=== PATIENT | male | born 2000 | race Caucasian/White ===

== ENCOUNTER 2022-04-07 09:55 | Day surgery (SDC) | payer OTHER ==
[~2022-04-07] VITALS: Ht 182.9 cm; Wt 83.2 kg
[2022-04-07] MEDS ORDERED: OXYMETAZOLINE 0.05% NASAL SPRAY (AFRIN) As Ordered ONE (11:13)
[2022-04-07] MEDS ORDERED: BUPIVACAINE/EPIN 0.5% 30 ML VIAL As Ordered ONE (11:13)
[2022-04-07] MEDS ORDERED: ACETAMINOPHEN 1000MG 100ML IV BTL (OFIRMEV) (J0131 PER 10MG) As Ordered ONE (11:23)
[2022-04-07] MEDS ORDERED: dexameTHASONE 4 MG/ML 1ML VIAL (J1100 PER 1MG) As Ordered ONE (11:23)
[2022-04-07] MEDS ORDERED: ONDANSETRON 4MG 2ML VIAL As Ordered ONE (11:23)
[2022-04-07] MEDS ORDERED: fentaNYL 100 MCG/2 ML INJECTION As Ordered ONE ×2 (11:23→11:36)
[2022-04-07] MEDS ORDERED: propofoL 200 MG/20 ML VIAL As Ordered ONE ×2 (11:23→11:37)
[2022-04-07] MEDS ORDERED: METOCLOPRAMIDE INJ 10MG/2ML VIAL (J2765 PER 1) As Ordered ONE (11:23)
[2022-04-07] MEDS ORDERED: MIDAZOLAM INJ 2MG/2ML VIAL (J2250 PER 1MG) As Ordered ONE (11:23)
[2022-04-07] MEDS ORDERED: LIDOCAINE 2% 100MG/5ML SDV (FOR ANES.) As Ordered ONE (11:23)
[2022-04-07] MEDS ORDERED: ROCURONIUM BROMIDE 50 MG/5 ML VIAL As Ordered ONE ×2 (11:29→11:34)
[2022-04-07] MEDS ORDERED: SUGAMMADEX SODIUM 500 MG/5 ML VIAL (BRIDION) As Ordered ONE (11:34)
[2022-04-07] MEDS ORDERED: SEVOFLURANE INHAL SOLN 250 ML BTL As Ordered ONE (11:53)
[2022-04-07] MEDS ORDERED: ONDANSETRON 4MG 2ML VIAL IV PRN ×2 (12:10→12:30)
[2022-04-07] MEDS ORDERED: fentaNYL 100 MCG/2 ML INJECTION IV PRN (12:10)
[2022-04-07] MEDS ORDERED: LR 1,000 ML IV SCH ×2 (12:10→12:30)
[2022-04-07] MEDS ORDERED: MORPHINE 2 MG/ML 1ML VIAL IV PRN (12:10)
[2022-04-07] MEDS ORDERED: oxyCODONE 5MG TAB PO PRN (12:10)
[2022-04-07] MEDS ORDERED: HYDROcodone/APAP LIQUID 7.5-325MG 15ML UDC (LORTAB ELIXIR) PO PRN (12:30)
[2022-04-07 14:11] VITALS: BP 149/77
== END 2022-04-07 14:19 | disposition home or self-care (01) ==
LOC: M SDC 09:55
PROVIDERS: ATTEND Otolaryngology
DX: J35.03 Chronic tonsillitis and adenoiditis (principal)
CPT/HCPCS: 42821; 88302; J0131; J1100; J2250; J2405; J2765; J3010

== ENCOUNTER 2022-04-19 22:11 | Emergency (ER) | payer OTHER ==
[~2022-04-19] VITALS: Ht 182.9 cm; Wt 79.5 kg
[2022-04-19] MEDS ORDERED: IBUPROFEN 600MG TAB PO ONE (22:30)
[2022-04-20 02:28] LABS: ALBUMIN 4.2 GM/DL (3.2-5.2); ALT/SGPT 33 U/L (12-78); BILIRUBIN,DIRECT 0.2 MG/DL (0.0-0.2); BILIRUBIN,TOTAL 0.6 MG/DL (0.2-1.0); BLOOD UREA NITROGEN 11 MG/DL (7-18); C REACTIVE PROTEIN QUANTITATIV 4.93 MG/DL (0.00-0.30); CARBON DIOXIDE LEVEL 27 MEQ/L (21-32); CHLORIDE LEVEL 100 MEQ/L (98-107); CREATININE FOR GFR 1.29 MG/DL (0.70-1.30); GLOMERULAR FILTRATION RATE > 60.0 (>60); GLUCOSE, FASTING 105 MG/DL (70-100); POTASSIUM SERUM 3.8 MEQ/L (3.5-5.1); SODIUM LEVEL 135 MEQ/L (136-145); TOTAL PROTEIN 7.3 GM/DL (6.4-8.2)
[2022-04-20 02:55] LABS: BASO % 0.3 % (0.0-1.0); HEMATOCRIT 42.5 % (42.0-52.0); HEMOGLOBIN 14.4 g/dl (13.5-17.5); LYMPH # 0.9 10^3/uL (1.5-5.0); LYMPH % 6.4 % (24.0-44.0); MEAN CORPUSCULAR HEMOGLOBIN 29.4 pg (27.0-33.0); MEAN CORPUSCULAR HGB CONC 33.9 g/dl (32.0-36.5); MEAN CORPUSCULAR VOLUME 86.9 fl (80.0-96.0); MONO # 1.3 10^3/uL (0.0-0.8); MONO % 8.9 % (2.0-8.0); NEUTROPHILS # 11.8 10^3/uL (1.5-8.5); PLATELET COUNT, AUTOMATED 294 10^3/uL (150-450); RED BLOOD COUNT 4.89 10^6/uL (4.30-6.10)
[2022-04-20] MEDS ORDERED: ISOVUE-370 76% 100ML VIAL As Ordered ONE (06:03)
[2022-04-20] MEDS ORDERED: NS 1,000 ML IV ONE (07:00)
[2022-04-20] MEDS ORDERED: ACETAMINOPHEN 500 MG TAB PO ONE (07:00)
[2022-04-20 07:10] LABS: MONO REFLEX EBV COMP NEGATIVE (NEGATIVE)
[2022-04-20] MEDS ORDERED: IBUPROFEN 800 MG TAB PO ONE (08:55)
[2022-04-20 09:48] VITALS: BP 121/77
[2022-04-22 16:08] LABS: EBV VIRAL CAPSID AG IgM <36.0 U/mL (0.0-35.9)
== END 2022-04-20 09:50 | disposition home or self-care (01) ==
LOC: M ED 22:11
DX: J02.9 Acute pharyngitis, unspecified (principal); R50.9 Fever, unspecified
CPT/HCPCS: 70491; 80048; 80076; 83605; 85025; 86140; 86308; 86664; 86665; 87040; 87486; 87581; 87633; 87798; 87880; 96360; 96361; 99283; Q9967

== ENCOUNTER 2024-01-19 02:27 | Emergency (ER) | payer OTHER ==
[~2024-01-19] VITALS: Ht 180.3 cm; Wt 85.6 kg
[2024-01-19] MEDS: ACETAMINOPHEN TAB 650MG DOSE (2X325MG) PO ONE (04:16)
[2024-01-19] MEDS: LIDOCAINE 2% MDV 20ML VIAL SC ONE (06:40)
[2024-01-19 07:12] VITALS: BP 117/69; TEMP 98; O2SAT 99
== END 2024-01-19 07:19 | disposition home or self-care (01) ==
LOC: M ED 02:27
DX: S61.216A Laceration without foreign body of right little finger without damage to nail, initial encounter (principal); W26.0XXA Contact with knife, initial encounter; F10.10 Alcohol abuse, uncomplicated; Y92.009 Unspecified place in unspecified non-institutional (private) residence as the place of occurrence of the external cause; Y93.G1 Activity, food preparation and clean up; Y99.9 Unspecified external cause status